=== PATIENT | male | born 1970 | race Caucasian/White ===

== ENCOUNTER → 2017-05-01 | Outpatient (CLI) | payer OTHER ==
[~2017-05-01] MED LIST: NAPR1TAB9 PO; OXYC1TAB3 PO; PHEN-876 PO; TAMS0.4C38 PO
--- NOTE | 2017-05-01 11:34 | DIAGNOSTIC IMAGING REPORT ---
L KNEE 1 OR 2 VIEWS ROUTINE CLINICAL HISTORY: 46 years-old Male presenting with M25.562 Knee pain, [id number]. TECHNIQUE: Frontal and lateral views of the left knee were obtained. COMPARISON: None. FINDINGS: No acute fracture or malalignment. No significant degenerative change. No large knee joint effusion. Regional soft tissues within normal limits. IMPRESSION: No acute osseous injury of the left knee. Electronically signed by: Don Alford M.D. 05/01/2017 11:32 AM Dictated Date/Time: 05/01/2017 11:32 AM
--- NOTE | 2017-05-01 11:56 | DIAGNOSTIC IMAGING REPORT ---
L TIBIA/FIBULA 2 VIEWS ROUTINE CLINICAL HISTORY: 46 years-old Male presenting with M79.605 Leg pain, [id number]. TECHNIQUE: Frontal and lateral views of the left lower leg were obtained. COMPARISON: None. FINDINGS: No acute fracture or malalignment. Knee joint and ankle mortise grossly intact. Apparent periosteal reaction along the posterior aspect of the proximal tibial diaphysis likely related to a musculotendinous insertion. No radiographic evidence of soft tissue abnormality. Prominent enthesophyte at the insertion of the Achilles tendon. IMPRESSION: No acute osseous injury of the left lower leg. Electronically signed by: Don Alford M.D. 05/01/2017 11:55 AM Dictated Date/Time: 05/01/2017 11:54 AM
[2017-05-01 12:52] LABS: BASO % 0.6 %; BASO ABS # 0.03 K/uL (0-0.2); COMPLETE YES; EOS % 2.8 %; HEMATOCRIT 42.2 % (42-52); IG% 0.2 %; LYMPH % 12.6 %; LYMPH ABS # 0.68 K/uL (1.2-3.4); MEAN CORPUSCULAR HEMOGLOBIN 26.7 pg (25-34); MEAN CORPUSCULAR HGB CONC 32.9 g/dl (32-36); MEAN PLATELET VOLUME 9.5 fL (7.4-10.4); MONO % 12.9 %; NEUT % 70.9 %; PLATELET COUNT 186 K/uL (130-400); RED BLOOD COUNT 5.21 M/uL (4.7-6.1); WHITE BLOOD COUNT 5.41 K/uL (4.8-10.8)
[2017-05-01 13:47] LABS: ALT/SGPT 28 U/L (12-78); AST/SGOT 21 U/L (15-37); BLOOD UREA NITROGEN 24 mg/dl (7-18); BUN/CREATININE RATIO 23.5 (10-20); CALCIUM 9.3 mg/dl (8.5-10.1); CARBON DIOXIDE 28 mmol/L (21-32); CHLORIDE 106 mmol/L (98-107); CHOLESTEROL 193 mg/dl (0-200); GLUCOSE 97 mg/dl (70-99); SODIUM 142 mmol/L (136-145); TRIGLYCERIDES 88 mg/dl (0-150); VERY LOW DENSITY LIPOPROT CALC 18 mg/dl
[2017-05-01 13:50] LABS: ALB/GLOB RATIO 1.2 (0.9-2); ALKALINE PHOSPHATASE 81 U/L (45-117); CHOLESTEROL/HDL RATIO 3.8; HDL CHOLESTEROL 51 mg/dl; LDL CHOLESTEROL CALCULATED 124 mg/dl; PROSTATE SPECIFIC ANTIGEN 0.781 ng/ml (0.000-4.000)
== END | disposition home or self-care (01) ==
LOC: C.RAD1850 10:33
PROVIDERS: ATTEND Physician Assistant Medical
DX: M25.562 Pain in left knee (principal); M79.605 Pain in left leg; Z12.5 Encounter for screening for malignant neoplasm of prostate

== ENCOUNTER → 2017-07-19 | Day surgery (SDC) | payer OTHER ==
[2017-07-10 11:32] VITALS: Ht 170.2 cm; Wt 67.3 kg
[~2017-07-19] VITALS: Ht 170.2 cm; Wt 67.3 kg
[~2017-07-19] MED LIST changes: +LIDOCAINE HCL 2% 2 ML VIAL (20MG/ML) ONE; -NAPR1TAB9 PO; +OXYC-90 PO; -OXYC1TAB3 PO; -PHEN-876 PO; +PROPOFOL IV EMULSION 10 MG/ML 20 ML VIAL IV ONE; +SODIUM CHLORIDE 0.9% 500ML 500 ML IV ONE
--- NOTE | 2017-07-19 09:03 | Endo History and Physical ---
History & Physical Date of Service: Jul 19, 2017. Chief Complaint: history of polyps Referring Physician: Dr. Minh Dickerson History of Present Illness 46 yo CM who presents for colonoscopy secondary to history of colon polyps and family history of colon cancer (Father). Past Surgical History Hx Cardiac Surgery: No Hx Internal Defibrillator: No Hx Pacemaker: No Hx Abdominal Surgery: Yes (APPY, INGUINAL HERNIA) Hx of Implantable Prosthesis: No Hx Post-Op Nausea and Vomiting: No Hx Cancer Surgery: No Hx Thoracic Surgery: No Hx Orthopedic: No Hx Urinary Tract Surgery: Yes (LITHOTRIPSY, CYSTOSCOPY WITH STENT PLACEMENT) Family History Colon CA Social History Smoking Status: Never Smoker Hx Substance Use: No Hx Alcohol Use: Yes ("VERY LITTLE") Allergies Coded Allergies: Penicillins (Verified Allergy, Unknown, UNKNOWN - HAPPENED CHILD, 07/10) Promethazine (Verified Allergy, Unknown, UNKNOWN - HAPPENED A CHILD, ) Current Medications Reported Home Medications Medications Dose Route/Sig Max Daily Dose Days Date Category Roxicodone Ir (Oxycodone HCl) 5 Mg Tab 5 Mg PO Q6H PRN 03/18/16 Rx Flomax (Tamsulosin Hcl) 0.4 Mg Cap 0.4 Mg PO DIRECTED PRN 03/15/16 Reported Vital Signs Weight (Kilograms): 67.27 Height (Feet): 5 Height (Inches): 7 Date Time Temp Pulse Resp B/P (MAP) Pulse Ox O2 Delivery O2 Flow Rate FiO2 07/19/17 08:44 36.4 73 20 116/80 (92) 99 Room Air Physical Exam General Appearance: WD/WN, no apparent distress Respiratory/Chest: Auscultation: breath sounds normal Cardiovascular: Heart Auscultation: RRR Abdomen: Bowel Sounds: normal Inspection & Palpation: soft, non-distended, no tenderness, guarding & rebound Assessment and Plan Assessment: 46 yo CM who presents for colonoscopy secondary to history of colon polyps and family history of colon cancer (Father). Plan: Proceed with colonoscopy.
--- NOTE | 2017-07-19 10:19 | Discharge Instructions ---
Endoscopy Patient Instructions Date / Procedure(s) Performed Jul 19, 2017. Colonoscopy Allergy Information Coded Allergies: Penicillins (Verified Allergy, Unknown, UNKNOWN - HAPPENED CHILD, 07/10) Promethazine (Verified Allergy, Unknown, UNKNOWN - HAPPENED A CHILD, ) Discharge Date / Findings Jul 19, 2017. Internal hemorrhoids Medication Instructions OK to resume all medications today as prescribed Reported Home Medications Medications Dose Route/Sig Max Daily Dose Days Date Category Roxicodone Ir (Oxycodone HCl) 5 Mg Tab 5 Mg PO Q6H PRN 03/18/16 Rx Flomax (Tamsulosin Hcl) 0.4 Mg Cap 0.4 Mg PO DIRECTED PRN 03/15/16 Reported Provider Instructions Activity Restrictions - No exercising or heavy lifting for 24 hours. - Do not drink alcohol the day of the procedure. - Do not drive a car or operate machinery until the day after the procedure. - Do not make any important decisions or sign important papers in 24 hours after the procedure. Following Day: - Return to full activity which may include returning to work/school. Diet Start your diet with liquids and light foods (jello, soup, juice, toast). Then eat your usual diet if not nauseated. Treatment For Common After Affects For mild abdominal pain, bloating, or excessive gas: - Rest - Eat lightly - Lie on right side Follow-Up Information Follow-up with Dr. Minh Dickerosn as scheduled Anesthesia Information What You Should Know You have had a procedure that required some medicine to reduce anxiety and discomfort. This treatment is called moderate sedation. After receiving the treatment, you may be sleepy, but you will be able to breathe on your own. The effects of the treatment may last for several hours. Follow these instructions along with Activity/Diet recommendations noted above: * Do NOT do anything where dizziness or clumsiness would be dangerous. * Rest quietly at home today, then you can be up and about tomorrow. * Have a responsible person stay with you the rest of today. * You may have had an I.V. today. If so, you may take the dressing off later today. Recommendations Call your doctor if: * Trouble breathing * Continuous vomiting for more than 24 hours * Temperature above 101 degrees * Severe abdominal pain or bloating * Pain not relieved by pain medicine ordered * There is increased drainage or redness from any incision * A large amount of rectal bleeding greater than 2-3 tablespoons. (If you had a polyp/s removed or have hemorrhoids, a small amount of blood - from the rectum is to be expected.) * You have any unanswered questions or concerns. IN THE EVENT OF A SERIOUS EMERGENCY, GO TO THE NEAREST EMERGENCY ROOM Your discharge instructions were prepared by provider Yan Ley. Patient Instructions Signature Page Jose J Chua Patient (or Guardian) Signature/Date: I have read and understand the instructions given to me by my caregivers. Caregiver/RN/Doctor Signature/Date: The above-named patient and/or guardian has received patient instructions on this date. + Original Patient Signature Page (only) stays with chart. Please make copy for patient.
[2017-07-19 10:28] VITALS: BP 114/78; PULSE 69; O2SAT 100
--- NOTE | 2017-07-19 10:33 | GI REPORT ---
Procedure Date: 07/19/2017 9:37 AM Procedure: Colonoscopy Indications: High risk colon cancer surveillance: Personal history of colonic polyps, Family history of colon cancer in a first-degree relative Medicines: Monitored Anesthesia Care Complications: No immediate complications. Estimated Blood Loss: Estimated blood loss: none. Procedure: Pre-Anesthesia Assessment: - Prior to the procedure, a History and Physical was performed, and patient medications and allergies were reviewed. The patient's tolerance of previous anesthesia was also reviewed. The risks and benefits of the procedure and the sedation options and risks were discussed with the patient. All questions were answered, and informed consent was obtained. Prior Anticoagulants: The patient has taken no previous anticoagulant or antiplatelet agents. ASA Grade Assessment: I - A normal, healthy patient. After reviewing the risks and benefits, the patient was deemed in satisfactory condition to undergo the procedure. After I obtained informed consent, the scope was passed under direct vision. Throughout the procedure, the patient's blood pressure, pulse, and oxygen saturations were monitored continuously. The scope was introduced through the anus and advanced to the terminal ileum. The colonoscopy was performed without difficulty. The patient tolerated the procedure well. The quality of the bowel preparation was good. The terminal ileum, ileocecal valve, appendiceal orifice, and rectum were photographed. Findings: The perianal and digital rectal examinations were normal. Non-bleeding internal hemorrhoids were found during retroflexion. The hemorrhoids were small. Impression: - Non-bleeding internal hemorrhoids. - No specimens collected. Recommendation: - Resume previous diet. - Continue present medications. - Repeat colonoscopy in 5 years for surveillance. - Return to primary care physician as previously scheduled. Yan Ley DO 07/19/2017 10:33:28 AM This report has been signed electronically. Note Initiated On: 07/19/2017 9:37 AM I attest to the content of the Intraoperative Record and orders documented therein, exceptions below
--- NOTE | 2017-07-19 10:48 | Anesthesiology Progress Note ---
Anesthesia Post Op Note Date & Time Jul 19, 2017 at 10:48 Vital Signs Pain Intensity: 0 Vital Signs Past 12 Hours Date Time Temp Pulse Resp B/P (MAP) Pulse Ox O2 Delivery O2 Flow Rate FiO2 07/19/17 10:28 69 18 114/78 (90) 100 Room Air 07/19/17 10:13 70 18 104/75 (85) 97 Room Air 07/19/17 09:58 93 16 101/74 (83) 97 Room Air 07/19/17 08:44 36.4 73 20 116/80 (92) 99 Room Air Notes Mental Status: alert / awake / arousable, participated in evaluation Pt Amnestic to Procedure: Yes Nausea / Vomiting: adequately controlled Pain: adequately controlled Airway Patency, RR, SpO2: stable & adequate BP & HR: stable & adequate Hydration State: stable & adequate Anesthetic Complications: no major complications apparent
== END | disposition home or self-care (01) ==
LOC: C.GI 08:26
PROVIDERS: ATTEND Internal Medicine
DX: Z12.11 Encounter for screening for malignant neoplasm of colon (principal); K64.8 Other hemorrhoids; Z86.010 Personal history of colon polyps; Z90.89 Acquired absence of other organs; Z80.0 Family history of malignant neoplasm of digestive organs